=== PATIENT | female | born 1965 | race Asian ===

== ENCOUNTER 2017-02-18 06:07 | Day surgery (SDC) | payer BC ==
[2017-02-17 16:26] VITALS: BMI 23.6
[2017-02-18] VITALS (14 sets, daily range): BP systolic 103–131; BP diastolic 57–73; PULSE 72–95; RESP 16–19; Ht 160 cm; Wt 60.5 kg
[~2017-02-18] VITALS: Ht 160 cm; Wt 60.5 kg
[~2017-02-18 06:07] MED LIST: CEFAZOLIN 2 GM/50 ML (PMX) 50 ML IVPB SCH; SOD CHLORIDE 0.9% 1,000 ML IV SCH
[2017-02-18 06:54] LABS: BASOPHIL # 0.1 10^3/ul (0.0-0.1); EOSINOPHILS # 0.1 10^3/ul (0.0-0.5); HEMOGLOBIN 12.2 g/dl (12.0-16.0); LYMPHOCYTES # 1.7 10^3/ul (0.8-2.9); LYMPHOCYTES % 28.5 % (15.0-51.0); MEAN CORPUSCULAR VOLUME 85.1 fl (82.0-101.0); MEAN PLATELET VOLUME 11.3 fl (7.4-10.4); MONOCYTE # 0.4 10^3/ul (0.3-0.9); MONOCYTES % 6.9 % (0.0-11.0); NEUTROPHILS % 61.4 % (39.0-77.0); PLATELET COUNT 279 10^3/UL (140-415); RED BLOOD COUNT 4.35 10^6/ul (4.20-5.40); RED CELL DISTRIBUTION WIDTH 14.8 % (11.5-14.5); WHITE BLOOD COUNT 6.1 10^3/ul (4.8-10.8)
[2017-02-18] MEDS ORDERED: CEFAZOLIN 1 GM INJ ONE (07:00)
[2017-02-18 07:27] LABS: INR 0.9; PROTIME 12.1 Sec (12.2-14.2); PT RATIO 0.9
[2017-02-18 07:33] LABS: ALBUMIN 4.4 g/dl (3.3-4.9); ALBUMIN/GLOBULIN RATIO 1.12; BILIRUBIN,INDIRECT 0.3 mg/dl (0-1.1); BILIRUBIN,TOTAL 0.3 mg/dl (0.2-1.3); TOTAL PROTEIN 8.3 g/dl (6.1-8.1)
[2017-02-18 07:34] LABS: CALCIUM 9.3 mg/dl (8.4-10.2); CREATININE 0.65 mg/dl (0.44-1.00); POTASSIUM 4.4 mmol/L (3.5-5.1)
--- NOTE | 2017-02-18 07:36 | RADRPT ---
PROCEDURE: XR Chest. CLINICAL INDICATION: Preop TECHNIQUE: AP Portable chest. COMPARISON: No pertinent prior examinations were submitted for comparison. FINDINGS: The cardiomediastinal silhouette is normal. The aorta is normal . There is mild bibasilar atelectas is No focal consolidation, pleural effusion or pneumothorax is seen. There are degenerative change s in the spine. IMPRESSION: No radiographic evidence of acute cardiopulmonary disease. Physician Renée Date Time Electronically viewed and signed by Johan Vaughan Physician on 02/18/2017 07:35 CS/
[2017-02-18] MEDS ORDERED: FENTAnyl 50 MCG/ML VIAL ONE (07:43)
[2017-02-18] MEDS ORDERED: PROPOFOL 20 ML ONE (07:43)
[2017-02-18] MEDS ORDERED: DEXAMETHASONE 4 MG/ML 1 ML INJ ONE (07:43)
[2017-02-18] MEDS ORDERED: MIDAZOLAM 1 MG/ML 2 ML INJ ONE (07:43)
[2017-02-18] MEDS ORDERED: ONDANSETRON 4 MG INJ ONE (07:43)
[2017-02-18] MEDS ORDERED: BUPIVACAINE 0.5%/EPI (SDV) 10 ML INJ ONE (07:53)
[2017-02-18] MEDS ORDERED: MIDAZOLAM 1 MG/ML 2 ML INJ IV PRN (08:30)
[2017-02-18] MEDS ORDERED: ONDANSETRON 4 MG INJ IV PRN (08:30)
[2017-02-18] MEDS ORDERED: FENTAnyl 50 MCG/ML VIAL IV PRN ×2 (08:30)
[2017-02-18] MEDS ORDERED: SCOPOLAMINE 1.5 MG PATCH ONE (08:49)
[2017-02-18] MEDS ORDERED: KETOROLAC 30 MG INJ ONE (08:50)
[2017-02-18] MEDS ORDERED: EPHEDrine SULFATE 50 MG/5 ML SYG ONE (08:53)
--- NOTE | 2017-02-18 09:34 | OPR ---
DATE OF OPERATION: 02/18/2017 PREOPERATIVE DIAGNOSIS: A 2 cm malignant skin lesion, left lower extremity. POSTOPERATIVE DIAGNOSIS: A 2 cm malignant skin lesion, left lower extremity. OPERATION PERFORMED: Wide local excision of malignant lesion, left lower extremity, with local skin flap advancement closure. ANESTHESIA: General. ANESTHESIOLOGIST: Dr. Ashley Hampton. SURGEON: Dr. Null CERTIFIED MEDICAL BILLER: Dr. Peraza. INDICATIONS FOR PROCEDURE: Patient is a 51-year-old female, who noticed an enlarging lesion just below her left side, primarily on the medial aspect. 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 Patient was referred for wide local excision and local skin flap advancement closure. She consented and was scheduled for surgery. OPERATIVE PROCEDURE: Patient was brought to the operating theater, placed under general anesthesia. The left lower extremity was prepped and draped in the usual sterile fashion. An elliptical incision was demarcated widely around the lesion, taking great care to ensure at least 1 cm margin on all sides of the tumor. Incision at this area was then infiltrated with 0.5 percent Marcaine local anesthetic with epinephrine. An elliptical incision was then carried out with 15 blade scalpel and the specimen was then transected from the subcutaneous tissue using cautery. It was oriented and sent for permanent pathologic analysis. Residual bleeding was controlled with cautery. Due to the large defect, it was not possible to accomplish primary closure. Therefore, inferior and superior skin flaps were mobilized using cautery. The flaps were rotated together and held in place with a towel clip, and the skin was then approximated with multiple 2-0 nylon sutures in vertical mattress fashion. The patient tolerated procedure well. ESTIMATED BLOOD LOSS: 10 mL. COMPLICATIONS: There were no complications. DISPOSITION: The patient was transported in stable condition to the recovery room. Dictated By: Jaden Null MD /debbie/anne /Document#: [id number]
--- NOTE | 2017-02-18 15:36 | RADRPT ---
Vent Rate: 76 bpm RR Interval: 0 msec NC Interval: 176 msec QRS Duration: 84 msec QT Interval: 374 msec QTC Interval: 420 msec P-R-T [place]: 45 - 79 - 52 degrees Normal sinus rhythm Normal ECG Electronically Signed By: Maximo Cisneros [id number]
== END 2017-02-18 10:47 | disposition home or self-care (01) ==
LOC: SDS 06:07
PROVIDERS: ATTEND Surgery Surgical Oncology
DX: C44.709 Unspecified malignant neoplasm of skin of left lower limb, including hip (principal)
CPT/HCPCS: 14020; 71010; 80053; 85025; 85610; 85730; 88304; 93005; J0690; J1100; J1885; J2250; J2405; J3010

== ENCOUNTER → 2018-08-22 | Outpatient (CLI) | payer BC | END | disposition home or self-care (01) | LOC: LAB 10:59 | PROVIDERS: ATTEND Internal Medicine | DX: J20.9 Acute bronchitis, unspecified (principal); R73.03 Prediabetes; E78.5 Hyperlipidemia, unspecified; D64.9 Anemia, unspecified | CPT/HCPCS: 71046; 80053; 80061; 83036; 85025; 85651 ==

== ENCOUNTER → 2018-09-04 | Outpatient (CLI) | payer BC | END | disposition home or self-care (01) | LOC: RAD 12:01 | PROVIDERS: ATTEND Internal Medicine | DX: M47.812 Spondylosis without myelopathy or radiculopathy, cervical region (principal) | CPT/HCPCS: 72040 ==